=== PATIENT | male | born 1945 | race Caucasian/White ===

== ENCOUNTER 2018-11-05 17:42 | Emergency (ER) | payer MEDICARE, BC ==
[~2018-11-05] VITALS: Ht 172.7 cm; Wt 83.9 kg
[2018-11-05 17:55] VITALS: BP 154/74
[2018-11-05] MEDS ORDERED: KETOROLAC TROMETHAMINE INJ 30 MG/ML VIAL ONE (18:16)
--- NOTE | 2018-11-05 18:23 | NUR ---
US TECH AT BEDSIDE
[2018-11-05] MEDS ORDERED: KETOROLAC TROMETHAMINE INJ 60 MG/2 ML VIAL IM ONE (18:30)
== END 2018-11-05 19:05 | disposition home or self-care (01) ==
LOC: ER 17:52
DX: S86.812A Strain of other muscle(s) and tendon(s) at lower leg level, left leg, initial encounter (principal); Z60.2 Problems related to living alone; X58.XXXA Exposure to other specified factors, initial encounter; Y93.01 Activity, walking, marching and hiking; Y92.89 Other specified places as the place of occurrence of the external cause; Y99.8 Other external cause status
CPT/HCPCS: 93971; 96372; 99284; J1885

== ENCOUNTER 2021-04-21 10:27 | Emergency (ER) | payer MEDICARE, BC ==
[~2021-04-21] VITALS: Ht 172.7 cm; Wt 83.9 kg
[2021-04-21 12:09] VITALS: BP 160/72
--- NOTE | 2021-04-21 12:30 | NUR ---
COVID SWAB DONE AND SENT TO LAB
[2021-04-21] MEDS ORDERED: ALBU8.5H8 INH (13:12)
[2021-04-21] MEDS ORDERED: PRED50TA PO (13:12)
--- NOTE | 2021-04-21 13:26 | NUR ---
Patient discharged to home in stable condition. Written and verbal after care instructions given. Patient verbalizes understanding of instruction.
== END 2021-04-21 13:27 | disposition home or self-care (01) ==
LOC: ER 10:30
DX: J45.909 Unspecified asthma, uncomplicated (principal); Z20.822 Contact with and (suspected) exposure to COVID-19; Z60.2 Problems related to living alone
CPT/HCPCS: 71045-TC; C9803

== ENCOUNTER 2023-03-06 00:24 | Emergency (ER) | payer MEDICARE, BC ==
[~2023-03-06] VITALS: Ht 172.7 cm; Wt 83.9 kg
[~2023-03-06 00:24] MED LIST: ALBU8.5H8 INH; PRED50TA PO
[2023-03-06] MEDS ORDERED: MORPHINE SULFATE INJ 2 MG/ML DISP.SYRIN IV ONE (02:00)
[2023-03-06] MEDS ORDERED: ONDANSETRON HCL/PF 4 MG/2 ML VIAL IVP ONE (02:00)
[2023-03-06] MEDS ORDERED: MORPHINE SULFATE INJ 4 MG/ML DISP.SYRIN ONE (02:09)
[2023-03-06] MEDS ORDERED: ONDANSETRON HCL/PF 4 MG/2 ML VIAL ONE (02:09)
[2023-03-06 02:10] LABS: APPEARANCE,URINE CLEAR (CLEAR); BILIRUBIN,URINE NEGATIVE (NEGATIVE); BLOOD, URINE TRACE-INTA Ery/uL (NEGATIVE); COLOR,URINE YELLOW (YELLOW); KETONES,URINE NEGATIVE (NEGATIVE); LEUKOCYTE ESTERASE ,URINE NEGATIVE (NEGATIVE); NITRITE, URINE NEGATIVE (NEGATIVE); PROTEIN,URINE NEGATIVE (NEGATIVE); UGLUCOSE NEGATIVE (NEGATIVE); UROBILINOGEN,URINE 0.2 EU/dL (0.2)
[2023-03-06 02:15] LABS: ADD URINE CULTURE NO; BACTERIA,URINE Rare /HPF (None Seen); RBC,URINE 0-2 /HPF (0-2); SQUAMOUS EPITHELIAL CELL,UR Rare /HPF (None Seen); WBC,URINE 0-2 /HPF (0-3)
[2023-03-06 02:25] LABS: BASOPHILS % (AUTO) 0.3 % (0.0-2.0); EOSINOPHILS % (AUTO) 0.4 % (0.0-6.0); HEMATOCRIT 46 % (39-51); HEMOGLOBIN 15.5 g/dL (13.5-17.5); LYMPHOCYTES # (AUTO) 1.2 K/uL (0.8-4.8); LYMPHOCYTES % (AUTO) 12.4 % (20.0-44.0); MEAN CORPUSCULAR HEMOGLOBIN 30 PG (26.0-33.0); MEAN CORPUSCULAR HGB CONC 33 g/dl (31.0-36.0); MEAN CORPUSCULAR VOLUME 89 fL (80-96); MONOCYTES # (AUTO) 0.3 K/uL (0.1-1.30); MONOCYTES % (AUTO) 3.4 % (2.0-12.0); NEUTROPHILS # (AUTO) 8.4 K/uL (1.8-8.9); NEUTROPHILS % (AUTO) 83.5 % (43.0-81.0); PLATELET COUNT (AUTO) 148 K/uL (150-450); RED BLOOD CELL COUNT(AUTO) 5.19 MIL/uL (4.5-6.0); RED CELL DISTRIBUTION WIDTH 14.8 % (11.5-15.0); WHITE BLOOD COUNT (AUTO) 10.1 K/uL (4.3-11.0)
[2023-03-06 02:44] LABS: CALCIUM, SERUM 9.5 mg/dL (8.5-10.1); CARBON DIOXIDE 24 mmol/L (21-32); CHLORIDE 103 mmol/L (98-107); GLUCOSE 157 mg/dL (74-106); POTASSIUM 4.1 mmol/L (3.5-5.1); SODIUM SERUM 139 mmol/L (136-145); UREA NITROGEN, BLOOD 17 mg/dL (7-18)
[2023-03-06 02:50] LABS: ALANINE AMINOTRANSFERASE 29 U/L (12-78); ALKALINE PHOSPHATASE 59 U/L (46-116); ASPARTATE AMINOTRANSFERASE 20 U/L (15-37); BILIRUBIN,DIRECT 0.1 mg/dL (0.0-0.2); BILIRUBIN,TOTAL 0.4 mg/dL (0.2-1.0); LIPASE 23 U/L (16-77); TOTAL PROTEIN, SERUM 7.2 g/dL (6.4-8.2)
[2023-03-06] MEDS ORDERED: IOHEXOL-300 100 ML VIAL IV ONE (03:03)
[2023-03-06] MEDS ORDERED: ONDA4TAB5 PO (07:25)
[2023-03-06] MEDS ORDERED: POLY17PO4 PO (07:25)
[2023-03-06] MEDS ORDERED: FAMO-131 PO (07:25)
[2023-03-06 07:35] VITALS: BP 134/84; TEMP 98; O2SAT 98
== END 2023-03-06 07:37 | disposition home or self-care (01) ==
LOC: ER 00:26
DX: R10.13 Epigastric pain (principal)
CPT/HCPCS: 99285; 74177; 96374; 96375; 93005; 85025; 80048; 83690; 80076; 81001; 36415; 84484 ×2; J2270; J2405; Q9967

== ENCOUNTER 2023-05-26 23:30 | Emergency (ER) | payer MEDICARE, BC ==
[~2023-05-26] VITALS: Ht 172.7 cm; Wt 83.9 kg
[~2023-05-26 23:30] MED LIST changes: +FAMO-131 PO; +ONDA4TAB5 PO; +POLY17PO4 PO
[2023-05-27] MEDS ORDERED: PANTOPRAZOLE 40 MG VIAL ONE (00:29)
[2023-05-27] MEDS ORDERED: MAG HYDROX/AL HYDROX/SIMETH 30 ML UDC ONE (00:29)
[2023-05-27] MEDS: LIDOCAINE VISCOUS 2% UD 15 ML UDC MM ONE (00:30)
[2023-05-27] MEDS: PANTOPRAZOLE 40 MG VIAL IV ONE (00:30)
[2023-05-27] MEDS: MAG HYDROX/AL HYDROX/SIMETH 30 ML UDC PO ONE (00:30)
[2023-05-27] MEDS ORDERED: LIDOCAINE VISCOUS 2% UD 15 ML UDC ONE (00:30)
[2023-05-27 00:32] LABS: BASOPHILS % (AUTO) 0.4 % (0.0-2.0); EOSINOPHILS # (AUTO) 0.1 K/uL (0.0-0.7); EOSINOPHILS % (AUTO) 1.4 % (0.0-6.0); HEMATOCRIT 46 % (39-51); HEMOGLOBIN 15.9 g/dL (13.5-17.5); LYMPHOCYTES # (AUTO) 1.8 K/uL (0.8-4.8); LYMPHOCYTES % (AUTO) 19.2 % (20.0-44.0); MEAN CORPUSCULAR HEMOGLOBIN 31 PG (26.0-33.0); MEAN CORPUSCULAR HGB CONC 35 g/dl (31.0-36.0); MEAN CORPUSCULAR VOLUME 88 fL (80-96); MONOCYTES # (AUTO) 0.5 K/uL (0.1-1.30); MONOCYTES % (AUTO) 5.3 % (2.0-12.0); NEUTROPHILS # (AUTO) 6.9 K/uL (1.8-8.9); NEUTROPHILS % (AUTO) 73.7 % (43.0-81.0); PLATELET COUNT (AUTO) 155 K/uL (150-450); RED BLOOD CELL COUNT(AUTO) 5.18 MIL/uL (4.5-6.0); RED CELL DISTRIBUTION WIDTH 14.9 % (11.5-15.0); WHITE BLOOD COUNT (AUTO) 9.3 K/uL (4.3-11.0)
[2023-05-27 00:47] LABS: PARTIAL THROMBOPLASTIN TIME 25.6 SEC (24.3-34.3); PROTHROMBIN TIME 10.6 SECS (9.2-11.1)
[2023-05-27 01:03] LABS: ALANINE AMINOTRANSFERASE 23 U/L (12-78); ALBUMIN 4.1 g/dL (3.4-5.0); ALKALINE PHOSPHATASE 62 U/L (46-116); ASPARTATE AMINOTRANSFERASE 13 U/L (15-37); BILIRUBIN,DIRECT 0.1 mg/dL (0.0-0.2); BILIRUBIN,TOTAL 0.4 mg/dL (0.2-1.0); CALCIUM, SERUM 9.3 mg/dL (8.5-10.1); CARBON DIOXIDE 32 mmol/L (21-32); CHLORIDE 102 mmol/L (98-107); CREATININE 1.1 mg/dL (0.6-1.3); GLUCOSE 183 mg/dL (74-106); LIPASE 22 U/L (16-77); POTASSIUM 3.7 mmol/L (3.5-5.1); SODIUM SERUM 140 mmol/L (136-145); TOTAL PROTEIN, SERUM 7.3 g/dL (6.4-8.2); UREA NITROGEN, BLOOD 15 mg/dL (7-18)
[2023-05-27] MEDS ORDERED: IOHEXOL-300 100 ML VIAL IV ONE (01:11)
[2023-05-27] MEDS ORDERED: IV NS 0.9% 250 ML IV ONE (01:11)
[2023-05-27] MEDS ORDERED: CT SWABBABLE VALVE TRANS SET 1 EA INFUS.SET MC ONE (01:11)
[2023-05-27] MEDS: MORPHINE SULFATE INJ 2 MG/ML DISP.SYRIN IV ONE (01:14)
[2023-05-27] MEDS ORDERED: MORPHINE SULFATE INJ 4 MG/ML DISP.SYRIN ONE (01:14)
[2023-05-27] MEDS ORDERED: KETOROLAC TROMETHAMINE 15 MG/ML VIAL ONE (02:38)
[2023-05-27] MEDS: KETOROLAC TROMETHAMINE 15 MG/ML VIAL IV ONE (02:39)
[2023-05-27] MEDS ORDERED: HYDROMORPHONE 1 MG/1 ML DISP.SYRIN ONE (03:29)
[2023-05-27] MEDS: HYDROMORPHONE 1 MG/1 ML DISP.SYRIN IV ONE (03:30)
[2023-05-27] MEDS ORDERED: FAMOTIDINE/PF INJ 20 MG/2 ML VIAL IV ONE (03:41)
[2023-05-27] MEDS: FAMOTIDINE/PF INJ 20 MG/2 ML VIAL IV ONE (03:42)
[2023-05-27] MEDS ORDERED: HYDR-4303 PO (04:58)
[2023-05-27 05:11] VITALS: BP 136/82; TEMP 98; O2SAT 98
[2023-05-27] MEDS ORDERED: PANT40TA49 PO (16:45)
[2023-05-27] MEDS ORDERED: NYST5ORA PO (16:45)
== END 2023-05-27 05:12 | disposition home or self-care (01) ==
LOC: ER 23:33
DX: K80.20 Calculus of gallbladder without cholecystitis without obstruction (principal); R10.13 Epigastric pain; Z87.19 Personal history of other diseases of the digestive system
CPT/HCPCS: 99285; 74177; 76705; 71045; 93005; 36415; 96374; 96375; 85025; 80048; 83690; 80076; 84484 ×2; 85730; J2270; J3490; J7030; J7050; C9113; Q9967; J1170; J1885

== ENCOUNTER 2023-05-27 16:03 | Inpatient (IN) | payer MEDICARE, BC ==
[~2023-05-27] VITALS: Ht 170.2 cm; Wt 83.9 kg
[~2023-05-27 16:03] MED LIST changes: +HYDR-4303 PO
[2023-05-27] MEDS: MORPHINE SULFATE INJ 2 MG/ML DISP.SYRIN IV ONE (16:40)
[2023-05-27] MEDS: ONDANSETRON HCL/PF 4 MG/2 ML VIAL IVP ONE (16:40)
[2023-05-27] MEDS: IV NS 0.9% 1,000 ML BAG IV ONE (16:40)
[2023-05-27] MEDS ORDERED: PANT40TA49 PO (16:45)
[2023-05-27] MEDS ORDERED: NYST5ORA PO (16:45)
[2023-05-27 17:14] LABS: BASOPHILS % (AUTO) 0.2 % (0.0-2.0); HEMATOCRIT 48 % (39-51); HEMOGLOBIN 16.2 g/dL (13.5-17.5); LYMPHOCYTES # (AUTO) 0.7 K/uL (0.8-4.8); LYMPHOCYTES % (AUTO) 4.6 % (20.0-44.0); MEAN CORPUSCULAR HEMOGLOBIN 30 PG (26.0-33.0); MEAN CORPUSCULAR HGB CONC 34 g/dl (31.0-36.0); MEAN CORPUSCULAR VOLUME 89 fL (80-96); MONOCYTES # (AUTO) 0.6 K/uL (0.1-1.30); MONOCYTES % (AUTO) 3.7 % (2.0-12.0); NEUTROPHILS # (AUTO) 14.5 K/uL (1.8-8.9); NEUTROPHILS % (AUTO) 91.5 % (43.0-81.0); PLATELET COUNT (AUTO) 146 K/uL (150-450); RED BLOOD CELL COUNT(AUTO) 5.43 MIL/uL (4.5-6.0); RED CELL DISTRIBUTION WIDTH 14.6 % (11.5-15.0); WHITE BLOOD COUNT (AUTO) 15.9 K/uL (4.3-11.0)
[2023-05-27 17:34] LABS: CALCIUM, SERUM 9.3 mg/dL (8.5-10.1); CREATININE 1.3 mg/dL (0.6-1.3); POTASSIUM 4.1 mmol/L (3.5-5.1)
[2023-05-27 17:45] LABS: ALBUMIN 3.9 g/dL (3.4-5.0); BILIRUBIN,DIRECT 0.2 mg/dL (0.0-0.2); BILIRUBIN,TOTAL 1.4 mg/dL (0.2-1.0); TOTAL PROTEIN, SERUM 7.3 g/dL (6.4-8.2)
[2023-05-27] MEDS ORDERED: ACETAMINOPHEN 325 MG TABLET PO PRN (18:30)
[2023-05-27] MEDS ORDERED: Z GUARD REMEDY 4 OZ OINT TP PRN (18:30)
[2023-05-27] MEDS ORDERED: MAG HYDROX/AL HYDROX/SIMETH 30 ML UDC PO PRN (18:30)
[2023-05-27] MEDS ORDERED: MAGNESIUM HYDROXIDE 30 ML UDC PO PRN (18:30)
[2023-05-27] MEDS ORDERED: ONDANSETRON HCL/PF 4 MG/2 ML VIAL IVP PRN (18:30)
[2023-05-27] MEDS ORDERED: PIPERACI/TAZO 3.375GM/D5W 50ML PB IV ONE (18:41)
[2023-05-27] MEDS: PIPERACILLIN /TAZOBACTAM 3.375 G in IV D5W 50 ML IV ONE (18:45)
[2023-05-27] MEDS ORDERED: MORPHINE SULFATE INJ 2 MG/ML DISP.SYRIN ONE (18:54)
[2023-05-27] MEDS: MORPHINE SULFATE INJ 2 MG/ML DISP.SYRIN IV PRN (18:55)
[2023-05-27 20:00] VITALS: BP 145/63; TEMP 97.9; O2SAT 96
[2023-05-27 20:30] VITALS: BP 145/63; TEMP 97.9; O2SAT 94
[2023-05-28] MEDS ORDERED: PIPERACILLIN /TAZOBACTAM 4.5 G in IV D5W 50 ML IV SCH
[2023-05-28] MEDS: ZOSYN IVPB 3.375 G in IV D5W 50ml IV SCH (00:14)
[2023-05-28 06:44] LABS: BASOPHILS % (AUTO) 0.1 % (0.0-2.0); HEMATOCRIT 44 % (39-51); HEMOGLOBIN 15.2 g/dL (13.5-17.5); LYMPHOCYTES # (AUTO) 0.8 K/uL (0.8-4.8); MEAN CORPUSCULAR HEMOGLOBIN 30 PG (26.0-33.0); MEAN CORPUSCULAR HGB CONC 35 g/dl (31.0-36.0); MEAN CORPUSCULAR VOLUME 88 fL (80-96); MONOCYTES # (AUTO) 0.3 K/uL (0.1-1.30); MONOCYTES % (AUTO) 2.7 % (2.0-12.0); NEUTROPHILS # (AUTO) 10.6 K/uL (1.8-8.9); NEUTROPHILS % (AUTO) 90.2 % (43.0-81.0); PLATELET COUNT (AUTO) 129 K/uL (150-450); RED BLOOD CELL COUNT(AUTO) 5.02 MIL/uL (4.5-6.0); RED CELL DISTRIBUTION WIDTH 14.6 % (11.5-15.0); WHITE BLOOD COUNT (AUTO) 11.7 K/uL (4.3-11.0)
[2023-05-28 06:56] LABS: ALANINE AMINOTRANSFERASE 15 U/L (12-78); ALKALINE PHOSPHATASE 48 U/L (46-116); ASPARTATE AMINOTRANSFERASE 13 U/L (15-37); BILIRUBIN,TOTAL 1.4 mg/dL (0.2-1.0); CALCIUM, SERUM 8.7 mg/dL (8.5-10.1); CARBON DIOXIDE 28 mmol/L (21-32); CHLORIDE 103 mmol/L (98-107); CREATININE 1.1 mg/dL (0.6-1.3); GLUCOSE 137 mg/dL (74-106); MAGNESIUM 1.9 mg/dL (1.8-2.4); POTASSIUM 3.8 mmol/L (3.5-5.1); SODIUM SERUM 139 mmol/L (136-145); TOTAL PROTEIN, SERUM 6.1 g/dL (6.4-8.2); UREA NITROGEN, BLOOD 15 mg/dL (7-18)
[2023-05-28 07:09] LABS: APPEARANCE,URINE CLOUDY (CLEAR); BILIRUBIN,URINE NEGATIVE (NEGATIVE); BLOOD, URINE NEGATIVE Ery/uL (NEGATIVE); COLOR,URINE YELLOW (YELLOW); KETONES,URINE NEGATIVE (NEGATIVE); LEUKOCYTE ESTERASE ,URINE NEGATIVE (NEGATIVE); NITRITE, URINE NEGATIVE (NEGATIVE); PROTEIN,URINE NEGATIVE (NEGATIVE); UGLUCOSE NEGATIVE (NEGATIVE); UROBILINOGEN,URINE 0.2 EU/dL (0.2)
[2023-05-28 07:28] LABS: ADD URINE CULTURE NO; BACTERIA,URINE Few /HPF (None Seen); RBC,URINE 0-2 /HPF (0-2); SQUAMOUS EPITHELIAL CELL,UR None Seen /HPF (None Seen); WBC,URINE 0-2 /HPF (0-3)
[2023-05-28 08:29] VITALS: BP 125/53; TEMP 99; O2SAT 94
[2023-05-28] MEDS: PIPERACILLIN /TAZOBACTAM 3.375 G in IV D5W 100 ML IV SCH (13:30)
[2023-05-28 16:01] VITALS: BP 132/90; TEMP 100.9; O2SAT 97
[2023-05-28] MEDS: IV NS 0.9% 1,000 ML IV PRN (18:23)
[2023-05-28] MEDS: IBUPROFEN 400 MG TABLET PO SCH (20:51)
[2023-05-29 08:54] VITALS: BP 126/66; TEMP 97.7; O2SAT 90
[2023-05-29 09:16] LABS: EOSINOPHILS % (AUTO) 0.1 % (0.0-6.0); HEMATOCRIT 46 % (39-51); HEMOGLOBIN 15.6 g/dL (13.5-17.5); LYMPHOCYTES # (AUTO) 0.5 K/uL (0.8-4.8); LYMPHOCYTES % (AUTO) 5.9 % (20.0-44.0); MEAN CORPUSCULAR HEMOGLOBIN 30 PG (26.0-33.0); MEAN CORPUSCULAR HGB CONC 34 g/dl (31.0-36.0); MEAN CORPUSCULAR VOLUME 88 fL (80-96); MONOCYTES # (AUTO) 0.3 K/uL (0.1-1.30); MONOCYTES % (AUTO) 3.2 % (2.0-12.0); NEUTROPHILS # (AUTO) 8.3 K/uL (1.8-8.9); NEUTROPHILS % (AUTO) 90.8 % (43.0-81.0); PLATELET COUNT (AUTO) 128 K/uL (150-450); RED BLOOD CELL COUNT(AUTO) 5.18 MIL/uL (4.5-6.0); RED CELL DISTRIBUTION WIDTH 14.8 % (11.5-15.0); WHITE BLOOD COUNT (AUTO) 9.1 K/uL (4.3-11.0)
[2023-05-29 09:30] LABS: BILIRUBIN,DIRECT 0.2 mg/dL (0.0-0.2); BILIRUBIN,TOTAL 0.9 mg/dL (0.2-1.0); TOTAL PROTEIN, SERUM 6.5 g/dL (6.4-8.2)
[2023-05-29 09:41] LABS: ALBUMIN 2.5 g/dL (3.4-5.0)
[2023-05-29] MEDS ORDERED: GADOTERATE MEGLUMINE 10 MMOL/20 ML VIAL IV ONE (10:01)
[2023-05-29] MEDS: NYSTATIN (PYXIS) 500,000 UNIT/5 ML ORAL.SUSP PO SCH (10:32)
[2023-05-29] MEDS: PANTOPRAZOLE 40 MG TABLET.DR PO SCH (10:32)
[2023-05-29] MEDS: MORPHINE SULFATE INJ 2 MG/ML DISP.SYRIN IV PRN (11:43)
[2023-05-29 16:14] VITALS: BP 130/61; TEMP 98.6; O2SAT 92
[2023-05-30 08:00] VITALS: BP 121/80; TEMP 98.5; O2SAT 93
[2023-05-30] MEDS: NYSTATIN (PYXIS) 500,000 UNIT/5 ML ORAL.SUSP PO SCH (13:35)
[2023-05-30 16:00] VITALS: BP 122/64; TEMP 98.2; O2SAT 96
[2023-05-30] MEDS: DOCUSATE SODIUM 100 MG CAPSULE PO SCH (17:27)
[2023-05-30 20:00] VITALS: BP 126/56; TEMP 98.2; O2SAT 99
[2023-05-31 08:59] VITALS: BP 131/61; TEMP 98.4; O2SAT 90
[2023-05-31] MEDS: FUROSEMIDE 20 MG/2 ML VIAL IV ONE (10:00)
[2023-05-31 10:35] LABS: BASOPHILS % (AUTO) 0.2 % (0.0-2.0); EOSINOPHILS # (AUTO) 0.1 K/uL (0.0-0.7); EOSINOPHILS % (AUTO) 1.3 % (0.0-6.0); HEMATOCRIT 40 % (39-51); HEMOGLOBIN 13.9 g/dL (13.5-17.5); LYMPHOCYTES # (AUTO) 0.6 K/uL (0.8-4.8); MEAN CORPUSCULAR HEMOGLOBIN 30 PG (26.0-33.0); MEAN CORPUSCULAR HGB CONC 35 g/dl (31.0-36.0); MEAN CORPUSCULAR VOLUME 86 fL (80-96); MONOCYTES # (AUTO) 0.7 K/uL (0.1-1.30); MONOCYTES % (AUTO) 7.8 % (2.0-12.0); NEUTROPHILS # (AUTO) 7.2 K/uL (1.8-8.9); NEUTROPHILS % (AUTO) 83.7 % (43.0-81.0); PLATELET COUNT (AUTO) 145 K/uL (150-450); RED BLOOD CELL COUNT(AUTO) 4.64 MIL/uL (4.5-6.0); RED CELL DISTRIBUTION WIDTH 14.7 % (11.5-15.0); WHITE BLOOD COUNT (AUTO) 8.6 K/uL (4.3-11.0)
[2023-05-31 10:40] LABS: CALCIUM, SERUM 8.8 mg/dL (8.5-10.1); POTASSIUM 3.5 mmol/L (3.5-5.1)
[2023-05-31 10:48] LABS: BILIRUBIN,TOTAL 2.3 mg/dL (0.2-1.0); TOTAL PROTEIN, SERUM 6.4 g/dL (6.4-8.2)
[2023-05-31 16:45] VITALS: BP 127/52; TEMP 98.2; O2SAT 92
[2023-05-31 20:00] VITALS: BP_SYST 131; BP_SYST 138; BP_DIAS 77; BP_DIAS 90; TEMP 98.8; TEMP 99.5; O2SAT 93; O2SAT 96
[2023-06-01 07:00] VITALS: BP 125/61; TEMP 97.2; O2SAT 97
[2023-06-01] MEDS ORDERED: BUPIVACAINE 0.5 % PF 150 MG/30 ML VIAL ONE (09:50)
[2023-06-01] MEDS ORDERED: LIDOCAINE 1%-EPI 1:100,000 20 ML VIAL ONE (09:50)
[2023-06-01] MEDS ORDERED: BACITRACIN ZINC OINT (15 GM) 15 GM TUBE TP ONE (09:50)
[2023-06-01] MEDS ORDERED: ROCURONIUM BROMIDE 50 MG/5 ML ONE (10:08)
[2023-06-01] MEDS ORDERED: FENTANYL PF 250MCG/5ML AMPUL ONE (10:08)
[2023-06-01] MEDS ORDERED: TRANEXAMIC ACID 1,000 MG/10 ML VIAL ONE (11:27)
[2023-06-01] MEDS ORDERED: KETAMINE HCL (500MG/10ML) 50 MG/ML VIAL ONE (12:05)
[2023-06-01 14:25] VITALS: BP 120/49; TEMP 97.8; O2SAT 97
[2023-06-01] MEDS: IV LR 1000 ML 1,000 ML IV PRN (14:55)
[2023-06-01] MEDS ORDERED: IV LR 1000 ML 1,000 ML IV PRN (15:00)
[2023-06-01 16:00] VITALS: BP 120/49; TEMP 97.7; O2SAT 93
[2023-06-01] MEDS: ACETAMINOPHEN 325 MG TABLET PO SCH (16:52)
[2023-06-01 20:00] VITALS: BP_SYST 132; BP_DIAS 61; BP_DIAS 71; TEMP 98.4; O2SAT 92
[2023-06-01] MEDS: GABAPENTIN 100 MG CAPSULE PO SCH (20:23)
[2023-06-01] MEDS: CELECOXIB 100 MG CAPSULE PO SCH (20:23)
[2023-06-01] MEDS: PIPERACILLIN /TAZOBACTAM 3.375 G in IV D5W 100 ML IV SCH (20:39)
[2023-06-02 06:48] LABS: EOSINOPHILS % (AUTO) 0.1 % (0.0-6.0); HEMATOCRIT 36 % (39-51); HEMOGLOBIN 12.7 g/dL (13.5-17.5); LYMPHOCYTES # (AUTO) 0.8 K/uL (0.8-4.8); LYMPHOCYTES % (AUTO) 7.6 % (20.0-44.0); MEAN CORPUSCULAR HEMOGLOBIN 30 PG (26.0-33.0); MEAN CORPUSCULAR HGB CONC 35 g/dl (31.0-36.0); MEAN CORPUSCULAR VOLUME 87 fL (80-96); MONOCYTES # (AUTO) 0.7 K/uL (0.1-1.30); MONOCYTES % (AUTO) 6.6 % (2.0-12.0); NEUTROPHILS # (AUTO) 8.9 K/uL (1.8-8.9); NEUTROPHILS % (AUTO) 85.7 % (43.0-81.0); PLATELET COUNT (AUTO) 211 K/uL (150-450); RED BLOOD CELL COUNT(AUTO) 4.19 MIL/uL (4.5-6.0); RED CELL DISTRIBUTION WIDTH 14.6 % (11.5-15.0); WHITE BLOOD COUNT (AUTO) 10.4 K/uL (4.3-11.0)
[2023-06-02 07:20] LABS: ALBUMIN 1.7 g/dL (3.4-5.0); BILIRUBIN,TOTAL 1.3 mg/dL (0.2-1.0); CALCIUM, SERUM 8.2 mg/dL (8.5-10.1); CREATININE 0.8 mg/dL (0.6-1.3); MAGNESIUM 2.5 mg/dL (1.8-2.4); PHOSPHORUS 2.7 mg/dL (2.5-4.9); POTASSIUM 3.2 mmol/L (3.5-5.1); TOTAL PROTEIN, SERUM 5.6 g/dL (6.4-8.2)
[2023-06-02 08:00] VITALS: BP 121/66; TEMP 97.7; O2SAT 94
[2023-06-02] MEDS: POTASSIUM CHLORIDE 20 MEQ TAB.PRT.SR PO SCH (09:48)
[2023-06-02 16:00] VITALS: BP 115/60; TEMP 98.2; O2SAT 92
[2023-06-02 20:00] VITALS: BP 113/52; TEMP 97.7; O2SAT 94
[2023-06-03 07:00] VITALS: BP 127/63; TEMP 97.5; O2SAT 93
[2023-06-03 16:00] VITALS: BP 119/73; TEMP 98.4; O2SAT 93
[2023-06-03 20:00] VITALS: BP 124/77; TEMP 99.1; O2SAT 94
[2023-06-04 06:51] LABS: BASOPHILS % (AUTO) 0.2 % (0.0-2.0); EOSINOPHILS # (AUTO) 0.3 K/uL (0.0-0.7); HEMATOCRIT 33 % (39-51); HEMOGLOBIN 11.7 g/dL (13.5-17.5); LYMPHOCYTES # (AUTO) 1.3 K/uL (0.8-4.8); LYMPHOCYTES % (AUTO) 11.2 % (20.0-44.0); MEAN CORPUSCULAR HEMOGLOBIN 30 PG (26.0-33.0); MEAN CORPUSCULAR HGB CONC 35 g/dl (31.0-36.0); MEAN CORPUSCULAR VOLUME 86 fL (80-96); MONOCYTES # (AUTO) 0.6 K/uL (0.1-1.30); MONOCYTES % (AUTO) 5.4 % (2.0-12.0); NEUTROPHILS # (AUTO) 9.1 K/uL (1.8-8.9); NEUTROPHILS % (AUTO) 80.2 % (43.0-81.0); PLATELET COUNT (AUTO) 220 K/uL (150-450); RED BLOOD CELL COUNT(AUTO) 3.89 MIL/uL (4.5-6.0); RED CELL DISTRIBUTION WIDTH 15.3 % (11.5-15.0); WHITE BLOOD COUNT (AUTO) 11.4 K/uL (4.3-11.0)
[2023-06-04 07:00] VITALS: BP 124/78; TEMP 98.1; O2SAT 94
[2023-06-04 07:12] LABS: ALBUMIN 1.6 g/dL (3.4-5.0); CREATININE 0.7 mg/dL (0.6-1.3); MAGNESIUM 2.2 mg/dL (1.8-2.4); PHOSPHORUS 2.9 mg/dL (2.5-4.9); POTASSIUM 3.1 mmol/L (3.5-5.1); TOTAL PROTEIN, SERUM 5.1 g/dL (6.4-8.2)
[2023-06-04] MEDS: PHENAZOPYRIDINE HCL 200 MG TABLET PO ONE (09:00)
[2023-06-04] MEDS: POTASSIUM CHLORIDE 20 MEQ TAB.PRT.SR PO SCH (09:59)
[2023-06-04 12:41] LABS: ANISOCYTOSIS 1+; BASOPHILS % (MANUAL) 0 % (0.0-2.0); EOSINOPHILS % (MANUAL) 2 % (0-4); LYMPHOCYTES % (MANUAL) 10 % (16-48); MONOCYTES % (MANUAL) 6 % (0-11.0); NEUTROPHILS % (MANUAL) 82 (42-76); OVALOCYTES 1+; PLATELET ESTIMATE ADEQUATE
[2023-06-04 16:09] VITALS: BP 132/83; TEMP 98.2; O2SAT 94
[2023-06-04 20:00] VITALS: BP 127/72; TEMP 98.2; O2SAT 94
[2023-06-04] MEDS: SENNOSIDES 8.6 MG TABLET PO SCH (21:56)
[2023-06-05 06:54] LABS: ALANINE AMINOTRANSFERASE 36 U/L (12-78); ALBUMIN 1.6 g/dL (3.4-5.0); ALKALINE PHOSPHATASE 83 U/L (46-116); ASPARTATE AMINOTRANSFERASE 29 U/L (15-37); CALCIUM, SERUM 8.1 mg/dL (8.5-10.1); CARBON DIOXIDE 24 mmol/L (21-32); CHLORIDE 107 mmol/L (98-107); CREATININE 0.6 mg/dL (0.6-1.3); GLUCOSE 114 mg/dL (74-106); MAGNESIUM 2.2 mg/dL (1.8-2.4); PHOSPHORUS 2.9 mg/dL (2.5-4.9); POTASSIUM 3.4 mmol/L (3.5-5.1); SODIUM SERUM 139 mmol/L (136-145); TOTAL PROTEIN, SERUM 5.2 g/dL (6.4-8.2); UREA NITROGEN, BLOOD 12 mg/dL (7-18)
[2023-06-05 07:00] VITALS: BP 135/110; TEMP 98.6; O2SAT 96
[2023-06-05 07:29] LABS: BASOPHILS % (AUTO) 0.4 % (0.0-2.0); EOSINOPHILS # (AUTO) 0.3 K/uL (0.0-0.7); EOSINOPHILS % (AUTO) 2.5 % (0.0-6.0); HEMATOCRIT 34 % (39-51); HEMOGLOBIN 11.6 g/dL (13.5-17.5); LYMPHOCYTES # (AUTO) 1.2 K/uL (0.8-4.8); MEAN CORPUSCULAR HEMOGLOBIN 29 PG (26.0-33.0); MEAN CORPUSCULAR HGB CONC 34 g/dl (31.0-36.0); MEAN CORPUSCULAR VOLUME 86 fL (80-96); MONOCYTES # (AUTO) 0.7 K/uL (0.1-1.30); MONOCYTES % (AUTO) 5.7 % (2.0-12.0); NEUTROPHILS # (AUTO) 10.6 K/uL (1.8-8.9); NEUTROPHILS % (AUTO) 82.4 % (43.0-81.0); PLATELET COUNT (AUTO) 257 K/uL (150-450); RED BLOOD CELL COUNT(AUTO) 3.95 MIL/uL (4.5-6.0); RED CELL DISTRIBUTION WIDTH 15.1 % (11.5-15.0); WHITE BLOOD COUNT (AUTO) 12.8 K/uL (4.3-11.0)
[2023-06-05 09:38] VITALS: BP 112/99
[2023-06-05] MEDS: POTASSIUM CHLORIDE 20 MEQ TAB.PRT.SR PO SCH (10:05)
[2023-06-05] MEDS ORDERED: GADOTERATE MEGLUMINE 10 MMOL/20 ML VIAL IV ONE (14:39)
[2023-06-05 16:00] VITALS: BP 108/57; TEMP 98.4; O2SAT 94
[2023-06-05 19:28] LABS: APPEARANCE,URINE CLEAR (CLEAR); BILIRUBIN,URINE NEGATIVE (NEGATIVE); BLOOD, URINE NEGATIVE Ery/uL (NEGATIVE); COLOR,URINE YELLOW (YELLOW); KETONES,URINE NEGATIVE (NEGATIVE); LEUKOCYTE ESTERASE ,URINE NEGATIVE (NEGATIVE); NITRITE, URINE NEGATIVE (NEGATIVE); PROTEIN,URINE NEGATIVE (NEGATIVE); UGLUCOSE NEGATIVE (NEGATIVE)
[2023-06-05 20:00] VITALS: BP 132/79; TEMP 98.2; O2SAT 94
[2023-06-06 07:00] VITALS: BP 133/73; TEMP 97.9; O2SAT 96
[2023-06-06] MEDS: CEFAZOLIN 2 GM in IV D5W 100 ML IV SCH (10:00)
[2023-06-06] MEDS ORDERED: NYST5ORA PO (10:23)
[2023-06-06] MEDS ORDERED: DOXY-326 PO (10:23)
[2023-06-06] MEDS ORDERED: IBUP-1953 PO (10:23)
[2023-06-06] MEDS ORDERED: CEFAZOLIN 1 GM in IV D5W 50 ML IV SCH (12:00)
== END 2023-06-06 14:00 | disposition home health service (06) | DRG 414 ==
LOC: ER 16:15 → TELE 18:41 → MED 22:18
PROVIDERS: ADMIT Internal Medicine; ATTEND Nurse Practitioner Acute Care
PROC: 0FT40ZZ Resection of Gallbladder, Open Approach (ICD-10-PCS; principal; 2023-06-01)
PROC: 0DNU0ZZ Release Omentum, Open Approach (ICD-10-PCS; 2023-06-01)
PROC: 0FJ44ZZ Inspection of Gallbladder, Percutaneous Endoscopic Approach (ICD-10-PCS; 2023-06-01)
DX: K80.12 Calculus of gallbladder with acute and chronic cholecystitis without obstruction (principal); K65.9 Peritonitis, unspecified; E44.1 Mild protein-calorie malnutrition; J98.11 Atelectasis; J90 Pleural effusion, not elsewhere classified; K82.A2 Perforation of gallbladder in cholecystitis; T81.41XA Infection following a procedure, superficial incisional surgical site, initial encounter; K22.70 Barrett's esophagus without dysplasia; D18.03 Hemangioma of intra-abdominal structures; D69.6 Thrombocytopenia, unspecified; K29.70 Gastritis, unspecified, without bleeding; K66.0 Peritoneal adhesions (postprocedural) (postinfection); K82.A1 Gangrene of gallbladder in cholecystitis; E87.6 Hypokalemia; E88.09 Other disorders of plasma-protein metabolism, not elsewhere classified; E80.6 Other disorders of bilirubin metabolism; Z68.29 Body mass index [BMI] 29.0-29.9, adult; Y83.8 Other surgical procedures as the cause of abnormal reaction of the patient, or of later complication, without mention of misadventure at the time of the procedure; Y92.230 Patient room in hospital as the place of occurrence of the external cause; Z53.31 Laparoscopic surgical procedure converted to open procedure
CPT/HCPCS: 36415; 71045-TC; 71250-TC; 74183; 76705-TC; 78226; 80048-TC; 80053-TC; 80076-TC; 81001; 82550-TC; 83690-TC; 83735-TC; 84100-TC; 84484-TC; 85025-TC; 85730-TC; 86850-TC; 97110-TC; 97112-TC; 97116-TC; 97164; 97530-TC; A4223; A6253; A9537; A9575; G0378; J0690; J1100; J1885; J1940; J2270; J2405; J2543; J2704; J3010; J3490; J7030; J7050; J7060; J7120

== ENCOUNTER 2023-06-09 16:10 | Inpatient (IN) | payer MEDICARE, BC ==
[~2023-06-09] VITALS: Ht 172.7 cm; Wt 82.1 kg
[~2023-06-09 16:10] MED LIST changes: -ALBU8.5H8 INH; +DOXY-326 PO; -FAMO-131 PO; -HYDR-4303 PO; +IBUP-1953 PO; +NYST5ORA PO; -ONDA4TAB5 PO; +PANT40TA49 PO; -POLY17PO4 PO; -PRED50TA PO
[2023-06-09] MEDS: IV NS 0.9% 1,000 ML BAG IV ONE (17:35)
[2023-06-09 17:40] LABS: BASOPHILS % (AUTO) 0.4 % (0.0-2.0); EOSINOPHILS # (AUTO) 0.1 K/uL (0.0-0.7); EOSINOPHILS % (AUTO) 0.8 % (0.0-6.0); HEMATOCRIT 39 % (39-51); HEMOGLOBIN 13.2 g/dL (13.5-17.5); LYMPHOCYTES # (AUTO) 0.7 K/uL (0.8-4.8); LYMPHOCYTES % (AUTO) 7.9 % (20.0-44.0); MEAN CORPUSCULAR HEMOGLOBIN 30 PG (26.0-33.0); MEAN CORPUSCULAR HGB CONC 34 g/dl (31.0-36.0); MEAN CORPUSCULAR VOLUME 87 fL (80-96); MONOCYTES # (AUTO) 0.3 K/uL (0.1-1.30); NEUTROPHILS # (AUTO) 7.3 K/uL (1.8-8.9); NEUTROPHILS % (AUTO) 86.9 % (43.0-81.0); PLATELET COUNT (AUTO) 463 K/uL (150-450); RED BLOOD CELL COUNT(AUTO) 4.44 MIL/uL (4.5-6.0); RED CELL DISTRIBUTION WIDTH 15.6 % (11.5-15.0); WHITE BLOOD COUNT (AUTO) 8.4 K/uL (4.3-11.0)
[2023-06-09] MEDS ORDERED: IBUP-1953 PO (17:49)
[2023-06-09] MEDS ORDERED: DOXY-326 PO (17:49)
[2023-06-09] MEDS ORDERED: ACET-2605 PO (17:49)
[2023-06-09] MEDS ORDERED: LEVO75TA PO (17:49)
[2023-06-09] MEDS ORDERED: NYST5ORA PO (17:49)
[2023-06-09 17:50] LABS: CALCIUM, SERUM 8.8 mg/dL (8.5-10.1); CARBON DIOXIDE 22 mmol/L (21-32); CHLORIDE 102 mmol/L (98-107); CREATININE 0.9 mg/dL (0.6-1.3); GLUCOSE 108 mg/dL (74-106); POTASSIUM 4.1 mmol/L (3.5-5.1); SODIUM SERUM 137 mmol/L (136-145); UREA NITROGEN, BLOOD 13 mg/dL (7-18)
[2023-06-09 17:56] LABS: ALANINE AMINOTRANSFERASE 40 U/L (12-78); ALBUMIN 2.4 g/dL (3.4-5.0); ALKALINE PHOSPHATASE 120 U/L (46-116); ASPARTATE AMINOTRANSFERASE 28 U/L (15-37); BILIRUBIN,DIRECT 0.3 mg/dL (0.0-0.2); BILIRUBIN,TOTAL 0.7 mg/dL (0.2-1.0); LIPASE 39 U/L (16-77); TOTAL PROTEIN, SERUM 7.3 g/dL (6.4-8.2)
[2023-06-09 18:03] LABS: LACTIC ACID 1.1 mmol/L (0.4-2.0)
[2023-06-09 18:06] LABS: INR 1.08 (0.91-1.10); PARTIAL THROMBOPLASTIN TIME 28.5 SEC (24.3-34.3); PROTHROMBIN TIME 11.4 SECS (9.2-11.1)
[2023-06-09] MEDS ORDERED: CEFEPIME 1 GM VIAL ONE (20:02)
[2023-06-09] MEDS: CEFEPIME 1 GM in IV D5W 50 ML IV ONE (20:03)
[2023-06-09] MEDS: VANCOMYCIN 1 GM in IV D5W 250 ML IV ONE (20:15)
[2023-06-09] MEDS ORDERED: VANCOMYCIN 1 GM /D5W 250 ML PB IV ONE (20:15)
[2023-06-09] MEDS ORDERED: HYDROCODONE/APAP 5/325MG TABLET PO PRN (21:30)
[2023-06-09] MEDS ORDERED: ONDANSETRON HCL/PF 4 MG/2 ML VIAL IVP PRN (21:30)
[2023-06-09] MEDS ORDERED: Z GUARD REMEDY 4 OZ OINT TP PRN (21:30)
[2023-06-09] MEDS ORDERED: ZOLPIDEM TARTRATE 5 MG TABLET PO PRN (21:30)
[2023-06-09] MEDS ORDERED: MAGNESIUM HYDROXIDE 30 ML UDC PO PRN (21:30)
[2023-06-09] MEDS ORDERED: MORPHINE SULFATE INJ 2 MG/ML DISP.SYRIN IV PRN (21:30)
[2023-06-09] MEDS ORDERED: MAG HYDROX/AL HYDROX/SIMETH 30 ML UDC PO PRN (21:30)
[2023-06-09 21:40] VITALS: BP 127/74; TEMP 98.2; O2SAT 98
[2023-06-09] MEDS: IV NS 0.9% 1,000 ML IV PRN (22:22)
[2023-06-09] MEDS: IBUPROFEN 400 MG TABLET PO SCH (23:27)
[2023-06-10 06:51] LABS: BASOPHILS % (AUTO) 0.6 % (0.0-2.0); EOSINOPHILS # (AUTO) 0.1 K/uL (0.0-0.7); EOSINOPHILS % (AUTO) 1.5 % (0.0-6.0); HEMATOCRIT 33 % (39-51); HEMOGLOBIN 11.4 g/dL (13.5-17.5); LYMPHOCYTES % (AUTO) 15.3 % (20.0-44.0); MEAN CORPUSCULAR HEMOGLOBIN 30 PG (26.0-33.0); MEAN CORPUSCULAR HGB CONC 34 g/dl (31.0-36.0); MEAN CORPUSCULAR VOLUME 87 fL (80-96); MONOCYTES # (AUTO) 0.6 K/uL (0.1-1.30); MONOCYTES % (AUTO) 9.1 % (2.0-12.0); NEUTROPHILS # (AUTO) 4.6 K/uL (1.8-8.9); NEUTROPHILS % (AUTO) 73.5 % (43.0-81.0); PLATELET COUNT (AUTO) 414 K/uL (150-450); RED BLOOD CELL COUNT(AUTO) 3.83 MIL/uL (4.5-6.0); RED CELL DISTRIBUTION WIDTH 15.3 % (11.5-15.0); WHITE BLOOD COUNT (AUTO) 6.2 K/uL (4.3-11.0)
[2023-06-10 07:00] VITALS: BP 108/72; TEMP 97.3; O2SAT 100
[2023-06-10 07:20] LABS: CALCIUM, SERUM 8.1 mg/dL (8.5-10.1); CREATININE 0.6 mg/dL (0.6-1.3); POTASSIUM 3.4 mmol/L (3.5-5.1)
[2023-06-10] MEDS: PANTOPRAZOLE 40 MG TABLET.DR PO SCH (07:55)
[2023-06-10] MEDS: LEVOTHYROXINE SODIUM 75 MCG TABLET PO SCH (07:55)
[2023-06-10] MEDS: POTASSIUM CHLORIDE 20 MEQ POWDER PACKET PO ONE (09:27)
[2023-06-10] MEDS ORDERED: KEY,NONCONTROL,TO KEEP IN PYXI 1 EA MC ONE (10:44)
[2023-06-10 16:00] VITALS: BP 133/61; TEMP 98.6; O2SAT 98
[2023-06-10] MEDS: METRONIDAZOLE 500MG/ NS 100ML 500 MG in PREMIX 1 EA IV SCH (18:24)
[2023-06-10 20:00] VITALS: BP 117/62; TEMP 98.4; O2SAT 96
[2023-06-10] MEDS: CEFEPIME HCL 2 GM in IV D5W 100 ML IV SCH (20:34)
[2023-06-10] MEDS: VANCOMYCIN 1 GM in IV D5W 250ml IV SCH (21:35)
[2023-06-11 06:59] LABS: BASOPHILS % (AUTO) 0.3 % (0.0-2.0); CREATININE 0.6 mg/dL (0.6-1.3); EOSINOPHILS # (AUTO) 0.1 K/uL (0.0-0.7); EOSINOPHILS % (AUTO) 1.8 % (0.0-6.0); HEMATOCRIT 31 % (39-51); HEMOGLOBIN 10.8 g/dL (13.5-17.5); LYMPHOCYTES # (AUTO) 0.8 K/uL (0.8-4.8); MEAN CORPUSCULAR HEMOGLOBIN 30 PG (26.0-33.0); MEAN CORPUSCULAR HGB CONC 35 g/dl (31.0-36.0); MEAN CORPUSCULAR VOLUME 86 fL (80-96); MONOCYTES # (AUTO) 0.7 K/uL (0.1-1.30); MONOCYTES % (AUTO) 11.8 % (2.0-12.0); NEUTROPHILS % (AUTO) 72.1 % (43.0-81.0); PHOSPHORUS 2.3 mg/dL (2.5-4.9); PLATELET COUNT (AUTO) 371 K/uL (150-450); POTASSIUM 3.3 mmol/L (3.5-5.1); RED BLOOD CELL COUNT(AUTO) 3.62 MIL/uL (4.5-6.0); RED CELL DISTRIBUTION WIDTH 15.4 % (11.5-15.0); WHITE BLOOD COUNT (AUTO) 5.6 K/uL (4.3-11.0)
[2023-06-11 08:50] VITALS: BP 110/58; TEMP 97.9; O2SAT 95
[2023-06-11] MEDS: POTASSIUM CHLORIDE 20 MEQ POWDER PACKET PO ONE (09:31)
[2023-06-11] MEDS: K PHOS NEUTRAL 250 MG TABLET PO ONE (16:11)
[2023-06-11 17:01] VITALS: BP 116/58; TEMP 97.5; O2SAT 96
[2023-06-11 22:07] VITALS: BP_SYST 126; BP_SYST 140; BP_DIAS 61; BP_DIAS 76; TEMP 97.9; TEMP 99; O2SAT 91; O2SAT 98
[2023-06-12 07:12] LABS: BASOPHILS % (AUTO) 0.4 % (0.0-2.0); EOSINOPHILS # (AUTO) 0.1 K/uL (0.0-0.7); HEMATOCRIT 31 % (39-51); LYMPHOCYTES # (AUTO) 0.9 K/uL (0.8-4.8); LYMPHOCYTES % (AUTO) 16.3 % (20.0-44.0); MEAN CORPUSCULAR HEMOGLOBIN 30 PG (26.0-33.0); MEAN CORPUSCULAR HGB CONC 35 g/dl (31.0-36.0); MEAN CORPUSCULAR VOLUME 85 fL (80-96); MONOCYTES # (AUTO) 0.7 K/uL (0.1-1.30); MONOCYTES % (AUTO) 11.7 % (2.0-12.0); NEUTROPHILS # (AUTO) 3.9 K/uL (1.8-8.9); NEUTROPHILS % (AUTO) 69.6 % (43.0-81.0); PLATELET COUNT (AUTO) 373 K/uL (150-450); RED BLOOD CELL COUNT(AUTO) 3.67 MIL/uL (4.5-6.0); RED CELL DISTRIBUTION WIDTH 15.5 % (11.5-15.0); WHITE BLOOD COUNT (AUTO) 5.6 K/uL (4.3-11.0)
[2023-06-12 07:28] LABS: CALCIUM, SERUM 8.1 mg/dL (8.5-10.1); CARBON DIOXIDE 21 mmol/L (21-32); CHLORIDE 110 mmol/L (98-107); CREATININE 0.6 mg/dL (0.6-1.3); GLUCOSE 89 mg/dL (74-106); MAGNESIUM 1.8 mg/dL (1.8-2.4); POTASSIUM 3.3 mmol/L (3.5-5.1); SODIUM SERUM 141 mmol/L (136-145); UREA NITROGEN, BLOOD 8 mg/dL (7-18)
[2023-06-12] MEDS: ACETAMINOPHEN 325 MG TABLET PO PRN (07:45)
[2023-06-12 08:26] VITALS: BP 119/64; TEMP 98.1; O2SAT 95
[2023-06-12] MEDS: POTASSIUM CHLORIDE 20 MEQ TAB.PRT.SR PO SCH (10:35)
[2023-06-12] MEDS ORDERED: METR500T PO (11:19)
[2023-06-12] MEDS ORDERED: CLIN300C12 PO (11:19)
== END 2023-06-12 15:00 | disposition home health service (06) | DRG 863 ==
LOC: ER 16:18 → MED 20:58
PROVIDERS: ADMIT Internal Medicine; ATTEND Nurse Practitioner Acute Care
DX: T81.41XA Infection following a procedure, superficial incisional surgical site, initial encounter (principal); E44.0 Moderate protein-calorie malnutrition; Y83.8 Other surgical procedures as the cause of abnormal reaction of the patient, or of later complication, without mention of misadventure at the time of the procedure; Y92.531 Health care provider office as the place of occurrence of the external cause; K21.9 Gastro-esophageal reflux disease without esophagitis; E86.0 Dehydration; E87.6 Hypokalemia; R19.7 Diarrhea, unspecified; E03.9 Hypothyroidism, unspecified; E88.09 Other disorders of plasma-protein metabolism, not elsewhere classified; Z90.49 Acquired absence of other specified parts of digestive tract; R53.1 Weakness; Z68.27 Body mass index [BMI] 27.0-27.9, adult; R62.7 Adult failure to thrive
CPT/HCPCS: 36415; 80048-TC; 80076-TC; 80202-TC; 83605-TC; 83690-TC; 83735-TC; 84100-TC; 84484-TC; 85025-TC; 85730-TC; 87040-TC; 87081-TC; A4216; A4223; A6253; A6407; G0378; J0692; J3370; J7030; J7060